=== PATIENT | male | born 1965 | race Caucasian/White ===

== ENCOUNTER → 2023-06-06 08:50 | Outpatient (BNVA) | payer MEDICAID, SELFPAY | PROVIDERS: PCP Nurse Practitioner Family; Visit Provider Nurse Practitioner Family | DX: Z13.6 Encounter for screening for cardiovascular disorders (principal) | CPT/HCPCS: 80053; 80061 ==

== ENCOUNTER 2023-10-14 07:46 | Outpatient (CLI) | payer OTHER, SELFPAY ==
[2023-10-14 08:04] VITALS: PULSE 83
[2023-10-14 08:05] VITALS: PULSE 79; RESP 18; O2SAT 96
[2023-10-14] MEDS: albuterol 2.5 mg/3 mL Neb INHALATION (08:05)
--- NOTE | 2023-10-14 08:38 | XR_ITS ---
WS: [id number] XR chest 2V* [id number] REASON FOR EXAM: COPD FINDINGS: Mild tortuosity of the thoracic aorta with normal heart size. Calcified granulomas disease bilaterally. No acute or subacute pulmonary parenchymal or pleural abnormality. Severe flattening of the hemidiaphragms and expansion of the anterior clear space. Inhomogeneous aera tion in the upper lung fernandez. No significant abnormality of the bony thorax. IMPRESSION: Findings compatible with central lobar emphysema and hyperexpansion. No acute or subacute abnormality .
== END 2023-10-14 07:47 | disposition home or self-care (01) ==
PROVIDERS: PCP Nurse Practitioner Family; Visit Provider Internal Medicine
DX: Z02.71 Encounter for disability determination (principal); J44.9 Chronic obstructive pulmonary disease, unspecified; F17.210 Nicotine dependence, cigarettes, uncomplicated; R94.2 Abnormal results of pulmonary function studies; R91.8 Other nonspecific abnormal finding of lung field
CPT/HCPCS: 71046; 94060; J7613

== ENCOUNTER → 2024-12-08 09:51 | Outpatient (BNVA) | payer MEDICAID, SELFPAY | PROVIDERS: PCP Nurse Practitioner Family; Visit Provider Nurse Practitioner Family | DX: S82.832A Other fracture of upper and lower end of left fibula, initial encounter for closed fracture (principal); V86.99XA Unspecified occupant of other special all-terrain or other off-road motor vehicle injured in nontraffic accident, initial encounter | CPT/HCPCS: 73610 ==

== ENCOUNTER → 2024-12-14 09:56 | Outpatient (BNVA) | payer MEDICAID, SELFPAY | PROVIDERS: PCP Nurse Practitioner Family; Visit Provider Podiatrist Foot & Ankle Surgery | DX: S82.832A Other fracture of upper and lower end of left fibula, initial encounter for closed fracture (principal); V86.99XA Unspecified occupant of other special all-terrain or other off-road motor vehicle injured in nontraffic accident, initial encounter | CPT/HCPCS: 73610 ==

== ENCOUNTER 2024-12-16 07:33 | Day surgery (SDC) | payer MEDICAID, SELFPAY ==
[2024-12-16] VITALS (9 sets, daily range): BP systolic 86–138; BP diastolic 57–80; PULSE 79–100; RESP 16–18; TEMP 36.4–36.5; O2SAT 91–99; BMI 19.9
--- NOTE | 2024-12-16 | XR_ITS ---
WS: [id number] C-ARM RADIOGRAPHS LEFT ANKLE; 2 IMAGES HISTORY: ORIF LEFT ANKLE COMPARISON: 12/14/2024 Intraoperative imaging during plate and screw fixation distal fibular fracture in good alignment. XR/XR ankle LT 2V [id number] IMPRESSION: Intraoperative imaging during fibular fracture repair.
[2024-12-16] MEDS: sodium chloride 0.9% 1,000 ML 30 ML IV (08:18)
--- NOTE | 2024-12-16 09:15 | P.ANESASSM_ITS ---
Pre-Anesthetic Assessment Height/Weight: Height 5 ft 9 in Weight 135 lb Temp Pulse Resp BP Pulse Ox O2 Del Method 97.5 F L 79 18 138/80 96 Room Air 12/16/24 07:52 12/16/24 07:52 12/16/24 07:52 12/16/24 07:52 12/16/24 07:52 12/16/24 07:53 Preop Diagnosis: Left lateral malleolus fracture Operation Date: 12/16/24 09:20 Proposed Procedures p Open reduction internal fixation left distal fibula(Left) - Logan Bhardwaj DPM Was Beta [place] taken within 24 hours: N/A Was Clonidine taken within 24 hours: N/A Last intake: Intake Last Liquid Date 12/16/24 Last Liquid Time 07:00 Last Solid Date 12/15/24 Last Solid Time 21:00 Social Tobacco and No alcohol Exam alert, oriented x 3, clear to auscultation bilaterally and regular rate & rhythm Airway Submandibular: within normal limits Cervical ROM: within normal limits Mallampati: Class II Dentition: full Anesthetic Plan ASA status: 2 Anesthesia: General and Regional (specify below) Other: No prior issues with anesthesia NPO since this morning. Patient had a small glass of water at 07 100 COPD, current smoker Denies any cardiac issues. Preop BP 138/80 Patient states that before the injury he was able to get around just fine Plan for general anesthesia with peripheral nerve block Medications/Allergies Home Medications ?Medication ?Instructions ?Recorded ?Confirmed ?Last Taken ?Type diazepam 2 mg tablet (Valium) 2 mg PO BID PRN anxiety #30 tabs 11/04/24 12/15/24 Unknown Rx nicotine See Rx Instructions transder mal 11/04/24 12/15/24 12/15/24 Rx 21mg/24hr-14mg/24hr-7mg/24hr daily .COMPLEX #56 patche s transderm patches,sequentl umeclidinium 62.5 mcg-vilanterol 1 inh inhalation Q24H #60 ea 11/04/24 12/15/24 12/15/24 Rx 25 mcg/actuation powdr for inhalation (Anoro Ellipta) CAM Boot left #1 ea 12/14/24 12/14/24 Unkn own Rx albuterol sulfate 90 mcg/actuation 2 puff inhalation Q 4-5H PRN 12/15/24 12/15/24 Unknown History aerosol inhaler (Ventolin HFA) Shortness Of Breath Or Wheezing ibuprofen 200 mg tablet 200 mg PO Q4-5H PRN Pain, Mi ld 12/15/24 12/15/24 12/15/24 History Allergies Allergy/AdvReac Type Severity Reaction Status Date / Time No Known Allergies Allergy Verified 12/15/24 10:07 Current Medications Generic Name Dose Route Start Last Admin Trade Name Freq PRN Reason Stop Dose Admin Sodium Chloride 1,000 mls @ 30 mls/hr 12/16/24 07:45 12/16/24 08:18 Sodium Chloride 0.9% IV 12/17/24 07:44 30 mls/hr .Q24H AUGUSTINE Administration PFSH Anesthesia Medical History Anxiety COPD (chronic obstructive pulmonary disease) Family History Father Cancer Grandmother Diabetes Social History Smoking and tobacco/nicotine status: current some day tobacco/nicotine user cigarettes Alcohol intake: current Alcohol intake frequency: few times a week Alcohol type: beer Data Anesthesia Cardiac Studies: No Data to Display
--- NOTE | 2024-12-16 09:18 | W.PM.OPSUD ---
Surgery/Procedure H&P Update DATE OF PROCEDURE: December 16, 2024 DATE H&P PERFORMED: 12/14/24 H&P UPDATE INFORMATION: I have reviewed H&P completed within last 30 days, I have examined patient prior to procedure, No changes to prior documentation and Risks and benefits of the procedure reviewed PREOP DIAGNOSIS: Left lateral malleolus fracture PLANNED PROCEDURE: Operation Date: 12/16/24 09:20 Proposed Procedures p Open reduction internal fixation left distal fibula(Left) - Logan Bhardwaj DPM
--- NOTE | 2024-12-16 09:24 | W.PM.BPON ---
Date of Procedure: 11/21/23 Surgeon: Logan Bhardwaj DPM Poker Prop Player(s): Micah Mitchell Procedure(s) performed: Open reduction internal fixation left lateral malleolar fracture Findings of the procedure(s): Parveen Frost B fracture displaced laterally Estimated blood loss: 5 mL Specimen(s) removed: No specimens Post-operative diagnosis: Left lateral malleolar fracture
--- NOTE | 2024-12-16 09:33 | P.OP_ITS ---
Operative Report Date of procedure: December 16, 2024 Pre-op diagnosis: Other closed fracture of distal end of left fibula, initial encounter S82.832A Post-op diagnosis: Other closed fracture of distal end of left fibula, initial encounter S82.832A Procedure done: Open reduction internal fixation left distal fibula. CPT code 44784 Implants: [place] 3 mm cannulated screw partially-threaded and headless for interfrag screw [place] anatomic fibular plate [place] 3.5 mm locking screws 2-0 Vicryl, 3-0 Vicryl, skin мария Surgeon: Logan Bhardwaj DPM Home Based Assistant: Akbar Kingston Estimated blood loss: 2 26 Urine output: None Complications: No complications Brief History: 59-year-old male with a history of Chronic Obstructive Pulmonary Disease (COPD) presenting with a fibular fracture. The displacement and nature of the fracture make surgical repair necessary. Consideration of the patient's respiratory status is essential in the post-operative management plan to facilitate adequate lung ventilation. 1. Fibular Fracture Surgical repair with titanium plate and screws, six weeks non-weightbearing, with potential for partial weight-bearing post-surgery based on intraoperative findings. 2. Chronic Obstructive Pulmonary Disease Copd Monitor oxygen saturation to minimize respiratory risks during recovery, with focus on maintaining optimal pulmonary function. - Elevate and avoid weightbearing on the affected leg to reduce swelling before surgery. - Attend all scheduled appointments for surgery and follow-ups. - Use prescribed splints and fracture boots. - Monitor for changes in respiratory function, especially while sleeping. - Adhere to prescribed medication regimen for pain management post-surgery. The severity of the fibular fracture, demonstrated by substantial misalignment necessitating surgical intervention, guides the treatment plan. Given the presence of COPD, careful consideration of the patient?s respiratory capacity is integrated into post-operative care, aiming to maintain lung function and prevent deterioration. The surgical approach includes stabilization with a titanium plate and screws, and the monitoring of post-operative recovery includes assessment of bone healing and respiratory function, with a focus on promoting partial weight-bearing if intraoperative stability aligns with respiratory capabilities.I reviewed at length with the patient, the risks, pote ntial complications, benefits, alternatives, expectations, and typical outcomes associated with the surgery. The risks and potential complications were explained in detail, including but not limited to infection, wound dehiscence or soft tissue complications, bleeding and hematoma, chronic edema, neuritis or nerve damage producing numbness or chronic pain, CRPS, failure to relieve pain or worsening pain, thick / painful / unsightly scar, limited motion / stiffness, malposition, delayed union, malunion, or nonunion, fracture, reaction to implants, anesthetic complications, venous thromboembolism, and deformity recurrence. I discussed the notion of no regrets with the patient as it pertains to complications and outcomes. The patient seemed to understand the nature of the proposed care and required convalescence. They asked appropriate questions, answered to their satisfaction. They are aware no guarantees can be made as to a satisfactory outcome and they understand there may be other possible unforeseen complications or outcomes not listed here that will be treated accordingly if they arise. There were no written or implied guarantees given to the patient. They gave informed consent to proceed. Procedure: Under mild sedation the patient was brought to the operating room and remained on the gurney in supine position. A timeout was performed. Anesthesia was then administered by the anesthesia service. Of note left popliteal block performed preoperatively per anesthesia. Well-padded pneumatic tourniquet applied to the left high calf. The left lower extremity was then scrubbed, prepped and draped utilizing normal aseptic technique. Left foot and ankle were exanguinated with a Esmarch bandage and tourniquet inflated to 250 mmHg. Attention was directed to the left lateral ankle where directly over the distal fibula a linear longitudinal incision was made through skin with #15 blade with dissection carried down through subcutaneous tissue to the layer of deep fascia and periosteum of the lateral fibula utilizing a combination of sharp and blunt technique. Care was taken to retract and preserve neurovascular and tendinous structures. All bleeders were ligated and cauterized as necessary. Periosteal incision was made and fracture was identified this was distracted and curettage followed by saline flush and reduced utilizing reverse mechanism of injury, utilizing standard AO technique a interfrag screw was advanced perpendicular to the fracture his was a [place] 3 mm headless partially-threaded cannulated screw with excellent bony apposition and compression noted followed by additional fixation with a lateral anatomic locking plate with 3.5 mm locking screws no screws violated the ankle joint this was confirmed with manipulation, range of motion without crepitus and with intraoperative mini C arm in the AP mortise and lateral views. Cotton hook test yielded intact syndesmosis. The incision was i rrigated with saline solution and closed in a layered fashion with periosteum reapproximated with 2-0 Vicryl subcutaneous tissue with 3-0 Vicryl and skin with мария. Dressing of Xeroform, gauze Kerlix and Juan wrap followed by application of a cam boot to the left lower extremity. Tourniquet was deflated and a prompt hyperemic response is noted to the distal digits of the left foot. Patient tolerated the procedure and anesthesia well and was transferred to the PACU with vital signs stable and vascular status intact. Following a period of postoperative monitoring we discharged home without home care instructions and scheduled follow-up.
--- NOTE | 2024-12-16 10:09 | ANES.PROC ---
Anesthesia Procedures Procedure/Date: 12/16/24 Nerve Block ^: Nerve Block 1: Main Anesthesia: general anesthesia Time Out Performed: Yes Consent: requested by attending/covering physician and from patient Nerve block location: popliteal Anesthesia monitors applied: pulse oximetry, EKG, BP cuff and oxygen Nerve block position: supine Anesthetic Used: ropivicaine 0.5% Amount of anesthesia used (mL): 30 Ultrasound used to: recognize landmarks Nerve Stimulator Used?: Yes Interscalene/Femoral BLK: other needle (pjunk) Injection: neg aspiration of heme Patient Tolerated Procedure: well Complications: none Additional Comments: dedadron 4mg added to block
[2024-12-16] MEDS: ceFAZolin 2,000 mg SDV 2000 MG IVP (10:15)
--- NOTE | 2024-12-16 12:17 | ANE.PACU2 ---
Inpatient post-anesthesia follow up: Airway intact: Yes Vital signs: Temperature 97.6 F Pulse Rate 82 Respiratory Rate 18 Blood Pressure 101/65 Pulse Oximetry 92 Oxygen Delivery Me thod Room Air Oxygen Flow Rate 8 Fraction of Inspir ed Oxygen Hydration adequate: Yes Nausea and vomiting: No Pain level: 1 Mental status: Baseline
== END 2024-12-16 12:18 | disposition home or self-care (01) ==
PROVIDERS: PCP Nurse Practitioner Family; Visit Provider Podiatrist Foot & Ankle Surgery
PROC: (CPT 27792; principal; 2024-12-16 09:10)
DX: S82.832A Other fracture of upper and lower end of left fibula, initial encounter for closed fracture (principal); J44.9 Chronic obstructive pulmonary disease, unspecified; F17.210 Nicotine dependence, cigarettes, uncomplicated; Z79.899 Other long term (current) drug therapy
CPT/HCPCS: 27792; 73600; 76000; C1713; J0330; J0690; J1100; J1885; J2250; J2371; J2405; J2704; J3010; J7030; J9999

== ENCOUNTER → 2024-12-30 12:49 | Outpatient (BNVA) | payer MEDICAID, SELFPAY | PROVIDERS: PCP Nurse Practitioner Family; Visit Provider Podiatrist Foot & Ankle Surgery | DX: Z98.890 Other specified postprocedural states (principal); Z87.81 Personal history of (healed) traumatic fracture; S82.832D Other fracture of upper and lower end of left fibula, subsequent encounter for closed fracture with routine healing; X58.XXXD Exposure to other specified factors, subsequent encounter | CPT/HCPCS: 73610 ==

== ENCOUNTER → 2025-01-18 13:41 | Outpatient (BNVA) | payer MEDICAID, SELFPAY | PROVIDERS: PCP Nurse Practitioner Family; Visit Provider Podiatrist Foot & Ankle Surgery | DX: Z98.890 Other specified postprocedural states (principal); S82.832D Other fracture of upper and lower end of left fibula, subsequent encounter for closed fracture with routine healing; X58.XXXD Exposure to other specified factors, subsequent encounter | CPT/HCPCS: 73610 ==

== ENCOUNTER → 2025-02-24 13:13 | Outpatient (BNVA) | payer MEDICAID, SELFPAY | PROVIDERS: PCP Nurse Practitioner Family; Visit Provider Podiatrist Foot & Ankle Surgery | DX: Z98.890 Other specified postprocedural states (principal); Z87.81 Personal history of (healed) traumatic fracture | CPT/HCPCS: 73610 ==

== ENCOUNTER → 2025-06-02 09:00 | Outpatient (BNVA) | payer MEDICAID, SELFPAY | PROVIDERS: PCP Nurse Practitioner Family; Visit Provider Nurse Practitioner Family | DX: Z13.6 Encounter for screening for cardiovascular disorders (principal) | CPT/HCPCS: 80053; 80061; 84443; 85025 ==